=== PATIENT | male | born 1985 | race Caucasian/White ===

== ENCOUNTER 2021-08-01 12:28 | Emergency (ER) | payer MEDICARE, MEDICAID ==
[2021-08-01 13:40] LABS: ESTIMATED GFR > 60 mL/min (>60)
== END 2021-08-01 15:30 | disposition home or self-care (01) ==
LOC: JD.ED 12:28
DX: M10.9 Gout, unspecified (principal)
CPT/HCPCS: 36415; 73660-26-TA; 73660-TA; 80053; 84550; 85025; 86140; 99283; 99284-25

== ENCOUNTER 2023-04-05 10:52 | Emergency (ER) | payer MEDICARE, MEDICAID ==
[2023-04-05 11:50] LABS: BASOPHILS PERCENT AUTO 0.6 % (0.0-1.0); EOSINOPHILS ABSOLUTE AUTO 0.1 K/mm3 (0.0-0.4); EOSINOPHILS PERCENT AUTO 1.2 % (0.0-6.0); HEMATOCRIT 45.5 % (42.0-52.0); HEMOGLOBIN 16.1 gm/dl (14.0-18.0); IMMATURE GRAN ABSOLUTE AUTO 0.01 K/mm3 (0.00-0.05); IMMATURE GRAN PERCENT AUTO 0.1 % (0.0-0.4); LYMPHOCYTES ABSOLUTE AUTO 1.8 K/mm3 (1.0-4.8); LYMPHOCYTES PERCENT AUTO 25.9 % (24.0-44.0); MEAN CORPUSCULAR HEMOGLOBIN 32.5 pg (28.0-32.0); MEAN CORPUSCULAR HGB CONC 35.4 g/dl (32.0-36.0); MEAN CORPUSCULAR VOLUME 91.9 fl (83.0-99.0); MONOCYTES ABSOLUTE AUTO 0.4 K/mm3 (0.0-0.8); MONOCYTES PERCENT AUTO 5.1 % (0.0-8.0); NEUTROPHILS ABSOLUTE AUTO 4.6 K/mm3 (1.8-7.7); NEUTROPHILS PERCENT AUTO 67.1 % (41.0-71.0); PLATELET COUNT,PLT 213 K/mm3 (150-400); RED BLOOD CELL COUNT 4.95 M/mm3 (4.52-5.90); WHITE BLOOD CELL COUNT,WBC 6.83 K/mm3 (3.9-11.3)
[2023-04-05 11:56] LABS: C-REACTIVE PROTEIN <0.2 mg/dL (<1.0); URIC ACID 6.2 mg/dL (3.5-7.2)
[2023-04-05 12:56] LABS: A/G RATIO 1.4 (1-2); ALBUMIN 4.5 g/dl (3.4-5.0); ANION GAP 12.9 (5-15); BILIRUBIN TOTAL 0.6 mg/dL (0.2-1.0); CREATININE 0.8 mg/dL (0.7-1.3); EST CRCL DRUG DOSING (CG) 152.57 mL/min; POTASSIUM,K 3.9 mEq/L (3.5-5.1); PROTEIN TOTAL,TP 7.8 g/dl (6.4-8.2)
[2023-04-05] MEDS: Colchicine 0.6 MG Tab PO ONE (13:21)
== END 2023-04-05 13:30 | disposition home or self-care (01) ==
LOC: JD.ED 10:52
DX: M10.9 Gout, unspecified (principal); Z79.899 Other long term (current) drug therapy
CPT/HCPCS: 36415; 73660; 80053; 84550; 85025; 85652; 86140; 99284; A9270